=== PATIENT | male | born 1970 | race African-American/Black ===

== ENCOUNTER 2019-01-09 18:48 | Emergency (ER) | payer OTHER ==
[~2019-01-09] VITALS: Ht 177.8 cm; Wt 115.2 kg
[~2019-01-09 18:48] MED LIST: PRO-AIR
[2019-01-09 18:59] VITALS: Ht 177.8 cm; Wt 115.2 kg
[2019-01-09 22:37] VITALS: BP 149/98
== END 2019-01-09 22:37 | disposition home or self-care (01) ==
LOC: ED 18:48
DX: S62.615A Displaced fracture of proximal phalanx of left ring finger, initial encounter for closed fracture (principal); J45.909 Unspecified asthma, uncomplicated; W01.0XXA Fall on same level from slipping, tripping and stumbling without subsequent striking against object, initial encounter; Y93.89 Activity, other specified; Y92.512 Supermarket, store or market as the place of occurrence of the external cause; Y99.8 Other external cause status
CPT/HCPCS: G0480